=== PATIENT | female | born 1940 | race Caucasian/White ===

== ENCOUNTER 2018-04-16 10:16 | Emergency (ER) | payer OTHER, MEDICARE ==
--- NOTE | 2018-04-16 11:03 | EDPHY ---
H & P Time Seen by Provider: 04/16/18 10:32 HPI/ROS: CHIEF COMPLAINT: Wound check HISTORY OF PRESENT ILLNESS: Patient is from out of state, [facility] , and is visiting her new grand baby. She presents to the emergency department worried about some wounds to her [place] and her potential to infect the new . She had biopsy done on this leg wound on February 18. 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 She has had slow healing to this wound and was given a course of antibiotics. She last saw her freight flagman on April 02 and no more antibiotics were prescribed at that time. She now has a small abrasion near this wound that is read but improving. She denies fevers or chills. REVIEW OF SYSTEMS: Negative except per HPI. General Appearance: Alert, no distress. Eyes: Pupils equal and round no icterus Respiratory: No respiratory distress Neurological: Awake, alert, no focal deficits. Skin: Warm and dry, no rashes. Open wound to anterior tibial aspect of right [place]. Some mild surrounding erythema but no overt cellulitis to biopsy site or new abrasion. No purulent drainage. No necrotic tissues or blisters. Musculoskeletal: Neck is supple nontender. Extremities are symmetrical, full range of motion, no edema. Psychiatric: Patient is oriented X 3, there is no agitation. Medical/surgical history: Asthma, palpitations. Surgeries include right knee replacement. Up-to-date on vaccinations. Social history: Nonsmoker, lives in [place]. Smoking Status: Never smoked Constitutional: Initial Vital Signs Temperature (C) 36.8 C 04/16/18 10:31 Heart Rate 77 04/16/18 10:31 Respiratory Rate 18 04/16/18 10:31 Blood Pressure 144/96 H 04/16/18 10:31 O2 Sat (%) 95 04/16/18 10:31 O2 Delivery Mode Room Air Medical Decision Making Differential Diagnosis: Differential diagnosis includes but is not limited to cellulitis, wound infection, necrotizing fasciitis, suturable laceration. After evaluation wound is healing but slowly and is somewhat chronic in nature. No signs of cellulitis , abscess, necrotizing fasciitis or need for further oral antibiotic at this time. Discussed other methods of wound care that may help speed healing including stopping using peroxide to the open wound. Wound was cleaned and dressed in the emergency department. Recommended she follow up with her freight flagman when she returns to [place]. Stable for discharge. Understands return precautions. Departure - Departure Disposition: Home, Routine, Self-Care Clinical Impression: Visit for wound check Condition: Good Instructions: Chronic Wounds (ED) Additional Instructions: Wound care as discussed with thin layer of antibiotic ointment. Stop using peroxide. Clean daily with warm water, soap, gentle cleansing. Make sure to wash soap off completely. Dry well then apply antibiotic ointment. Keep covered with Band-Aid. Follow up with your freight flagman next week when you return to [place] without fail. If you develop significant drainage, red streaks, fever or other concerning new symptoms return to the emergency department. Referrals: NONE *PRIMARY CARE P,. [Primary Care Provider] - As per Instructions
[2018-04-16 11:33] VITALS: BP 169/94
== END 2018-04-16 11:25 | disposition home or self-care (01) ==
LOC: CED 10:16
DX: Z48.01 Encounter for change or removal of surgical wound dressing (principal); J45.909 Unspecified asthma, uncomplicated